=== PATIENT | male | born 1975 | race Caucasian/White ===

== ENCOUNTER 2016-08-26 20:47 | Emergency (ER) | payer SELFPAY ==
[2016-08-26] MEDS ORDERED: 0.9 % SODIUM CHLORIDE 1,000 ML IV ONE ×2 (21:12→22:53)
--- NOTE | 2016-08-26 21:45 | ED Physician Documentation ---
General Adult - HISTORIAN Historian: patient, spouse - HPI Stated Complaint: cough, weakness, fever Chief Complaint: General Adult Onset: days ago Timing: worse Severity: moderate Further Comments: yes (Pt is a 40 yo male with high fever 2 days ago and subsequent cough and sob. Pt is a smoker. Pt also c/o ongoing abd pain and back pain and wonders if he has pancreatitis. reports pt has had weight loss over the past few months. Pt is a heavy drinker and has had at least 6 beers this afternoon.) - ROS CONST: fever, sweating, weight loss EYES/ENT: nasal congestion CVS/RESP: shortness of breath, cough GI/: abdominal pain MS/SKIN/LYMPH: back pain - PAST HX Past History: other (ortho surgery, heavy alcohol use) Allergies/Adverse Reactions: Allergies Allergy/AdvReac Type Severity Reaction Status Date / Time No Known Allergies Allergy Verified 08/26/16 21:03 Home Medications: Ambulatory Orders Medication Instructions Recorded Azithromycin [Zithromax] 250 mg PO DAILY #5 tablet 08/27/16 Levofloxacin [Levaquin] 500 mg PO DAILY #7 tablet 08/27/16 - SOCIAL HX Smoking History: cigarettes Alcohol Use: heavy - FAMILY HX Family History: No - VITAL SIGNS Vital Signs: Vital Signs Temp Pulse Resp BP Pulse Ox 120/68 04/04/13 13:10 - REVIEWED ASSESSMENTS Nursing Assessment Reviewed: Yes Vitals Reviewed: Yes Progress - Progress Progress: NS 1 L IVF x 2 Duoneb HFN Levaquin 500 mg IV Azithromycin 500 mg po in ER Rx Azithromycin 250 mg. Take one daily for 5 days. Rx Levaquin 500 mg. Take one tablet once daily for 7 days. Albuterol (2.5 mg/3ml). One HFN treatment every 4 hrs as needed. - EKG/XRAY/CT XRAY: chest (Patchy bibasilar infiltrates worse on the right.), abdomen ( negative) ED Results Lab/Radiology - Orders Orders: ED Orders Category Date Time Status ABDOMEN 1 VIEW [RAD] Stat Exams 08/26/16 Ordered CHEST 2 VIEW [CHEST P.A.&LAT 2 VIEWS] [RAD] Stat Exams 08/26/16 Ordered AMYLASE Routine Lab 08/26/16 Ordered CBC/PLATELET/DIFF Routine Lab 08/26/16 Ordered CMP Routine Lab 08/26/16 Ordered D DIMER Stat Lab 08/26/16 Ordered ETHANOL MEDICAL USE ONLY Stat Lab 08/26/16 Ordered INFLUENZA A&B Stat Lab 08/26/16 Uncollected Rapid Strep [GRP A STREP SCREEN] Stat Lab 08/26/16 Ordered UA [URINALYSIS] Routine Lab 08/26/16 Ordered 0.9 % Sodium Chloride [Normal Saline] 1,000 ml Med 08/26/16 21:12 Active IV Q1H General Adult Physical Exam - PHYSICAL EXAM GENERAL APPEARANCE: moderate distress EENT: eye inspection normal, ENT inspection normal, pharynx normal NECK: normal inspection, supple RESPIRATORY: wheezes, rhonchi, other (cough) CVS: tachycardia ABDOMEN: soft, normal bowel sounds, tenderness (diffuse) BACK: normal inspection, no CVA tenderness SKIN: warm/dry, normal color EXTREMITIES: non-tender, normal range of motion, no evidence of injury NEURO: oriented X3, motor nml, sensation nml Discharge Clincal Impression: Pneumonia Qualifiers: Pneumonia type: due to unspecified organism Laterality: bilateral Lung location : lower lobe of lung Qualified Code(s): J18.9 - Pneumonia, unspecified organism Prescriptions: Azithromycin [Zithromax] 250 mg PO DAILY #5 tablet Levofloxacin [Levaquin] 500 mg PO DAILY #7 tablet Referrals: Primary Doctor,No [Primary Care Provider] - 2 Days Home Medications: Ambulatory Orders Azithromycin [Zithromax] 250 mg PO DAILY #5 tablet 08/27/16 Levofloxacin [Levaquin] 500 mg PO DAILY #7 tablet 08/27/16 Condition: Stable Disposition: 01 HOME, SELF-CARE Decision to Admit: NO Decision Time: 00:50
[2016-08-26] MEDS ORDERED: IPRATROPIUM/ALBUTEROL SULFATE 3 ML AMPUL.NEB NEB ONE (21:59)
[2016-08-26 22:08] LABS: eGFR (African) > 60; eGFR (Non-African) > 60
[2016-08-26 22:20] LABS: BASOPHILS % 0.3 (0.0-1.5); EOSINOPHILS % 0.9 % (0.0-6.8); LYMPHOCYTES # 2.6 # k/uL (0.6-4.0); MEAN CORPUSCULAR HEMOGLOBIN 32.3 pg (28.0-34.0); MONOCYTES # 0.5 # k/uL (0.0-0.9); MONOCYTES % 3.1 % (0.0-11.0); NEUTROPHILS # 12.9 # k/uL (1.4-7.7)
[2016-08-26] MEDS ORDERED: LEVOFLOXACIN 500MG/D5W 100ML 100 ML IV ONE (23:04)
[2016-08-26] MEDS ORDERED: AZITHROMYCIN 250 MG TABLET PO ONE (23:38)
[2016-08-27] MEDS ORDERED: ACETAMINOPHEN 325 MG TABLET PO ONE (00:20)
[2016-08-27] MEDS ORDERED: ACETAMINOPHEN 325 MG TABLET ONE (00:20)
[2016-08-27 01:31] VITALS: BP 105/54
--- NOTE | 2016-08-27 06:01 | Diagnostic Imaging Report ---
Report Submission Date: Aug 26, 2016 10:21:16 PM PUNCH OPERATOR Patient ~ Study Name: DORON KING ~ Date: Aug 26, 2016 10:03:45 PM PUNCH OPERATOR ~ Modality Type: CR Gender: M ~ Description: CHEST : 77 ~ Institution: [facility] Physician: DORON BAL ~ ~ ~ ~ Chest -two views CLINICAL HISTORY: ~ Cough. ~Shortness of breath. ~Recent weight loss. FINDINGS: ~ Examination of the chest in PA and lateral views with no prior film for comparison demonstrates bibasilar infiltrates worse on the right. ~There is minimal infiltrate in the right mid lung zone. ~Cardiac silhouette is within normal limits. IMPRESSION: ~ Patchy bibasilar infiltrates worse on the right. ~ Electronically signed on Aug 26, 2016 10:21:16 PM PUNCH OPERATOR by: Chalo MCALLISTER
--- NOTE | 2016-08-27 06:01 | Diagnostic Imaging Report ---
Report Submission Date: Aug 26, 2016 10:20:14 PM LOSS PREVENTION COORDINATOR Patient ~ Study Name: DORON KING ~ Date: Aug 26, 2016 10:02:28 PM LOSS PREVENTION COORDINATOR ~ Modality Type: CR Gender: M ~ Description: ABDOMEN : 77 ~ Institution: [facility] Physician: DORON BAL ~ ~ ~ ~ Abdomen-one view CLINICAL HISTORY: ~ Abdominal pain. ~Recent weight loss. FINDINGS: ~ Examination abdomen in single AP view demonstrates gas and stool in the colon. ~ There is no obstruction. ~Properitoneal fat lines are within normal limits. ~ There are no unusual intra- abdominal calcifications. ~The visualized bony structures are intact. IMPRESSION: ~ Negative abdomen. ~ Electronically signed on Aug 26, 2016 10:20:14 PM LOSS PREVENTION COORDINATOR by: Chalo MCALLISTER
[2016-08-27 08:05] LABS: APPEARANCE,URINE CLEAR (CLEAR); COLOR,URINE YELLOW (YELLOW); OCCULT BLOOD,URINE TRACE-LYSED (NEGATIVE); UROBILINOGEN URINE 0.2 Eu (0.2-1.0)
[2016-08-27] MEDS ORDERED: LEVOFLOXACIN 500MG/D5W 100ML 500 MG in PREMIX BAG 1 BAG IV SCH (09:00)
== END 2016-08-27 01:15 | disposition home or self-care (01) ==
LOC: ED 20:47
DX: J18.9 Pneumonia, unspecified organism (principal)
CPT/HCPCS: 71020; 74000; 80053; 80320; 81002; 82150; 85025; 85379; 87040; 87070; 87400; 87880; J1956; J7030; 96360; 99283; 99284; G0480; S1016

== ENCOUNTER 2017-02-05 18:53 | Emergency (ER) | payer SELFPAY ==
--- NOTE | 2017-02-05 19:05 | ED Physician Documentation ---
Sore Throat/Dental Pain - HISTORIAN Historian: patient - HPI Chief Complaint: Dental Pain Onset: days ago (yesterday) Context: Dental Caries Associated Symptoms: denies: fever, chills Further Comments: yes (started yesterday is gradually getting worse. Has tried ice pack, and heat without much improvement. Tylenol has not helped. Has dental appointment next week.) - ROS CONST: denies: no problems - PAST HX Past History: none Allergies/Adverse Reactions: Allergies Allergy/AdvReac Type Severity Reaction Status Date / Time No Known Allergies Allergy Verified 02/05/17 19:06 Home Medications: Ambulatory Orders Medication Instructions Recorded Clindamycin HCl [Cleocin] 300 mg PO QID #30 capsule 02/05/17 Tramadol HCl [Ultram] 50 mg PO Q6 PRN #20 tablet 02/05/17 - SOCIAL HX Smoking History: greater than 1 pack/day (1 ppd) Alcohol Use: occasionally Drug Use: none - FAMILY HX Family History: No - VITAL SIGNS Vital Signs: Vital Signs Temp Pulse Resp BP Pulse Ox 105/54 08/27/16 01:20 - REVIEWED ASSESSMENTS Nursing Assessment Reviewed: Yes Vitals Reviewed: Yes Dental Pain Physical Exam - EXAM General Appearance: alert, mild distress Eyes: eyes nml inspection Mouth/Throat: lips nml, pharynx nml, dental tenderness (left upper), widespread dental decay. No: pharyngeal erythema Respiratory: no resp. distress, breath sounds nml. No: wheezes, rales, rhonchi CVS: reg. rate & rhythm, heart sounds nml. No: murmur Skin: warm/dry, normal color Neuro/Psych: No: anxiety Discharge Clincal Impression: Dental caries Referrals: Primary Doctor,No [Primary Care Provider] - 2 Days Additional Instructions: Try Aleve take two tablets twice a day with food for the next 5 days. Supplement with tramadol one every 6 hours as needed for pain. Take clindamycin for antibiotic. Home Medications: Ambulatory Orders Clindamycin HCl [Cleocin] 300 mg PO QID #30 capsule 02/05/17 Tramadol HCl [Ultram] 50 mg PO Q6 PRN #20 tablet 02/05/17 Condition: Stable Disposition: 01 HOME, SELF-CARE Decision to Admit: NO Date of Decison to Admit: 02/05/17 Decision Time: 19:10
[2017-02-05 19:07] VITALS: BP 121/74
[2017-02-05] MEDS: KETOROLAC TROMETHAMINE 60 MG/2 ML VIAL IM ONE (19:18)
== END 2017-02-05 19:19 | disposition home or self-care (01) ==
LOC: ED 18:53
DX: K02.9 Dental caries, unspecified (principal)
CPT/HCPCS: 96372; 99283; J1885

== ENCOUNTER 2017-10-15 20:08 | Emergency (ER) | payer SELFPAY ==
[2017-10-15] MEDS ORDERED: KETOROLAC TROMETHAMINE 30 MG/1ML VIAL IM ONE (20:39)
[2017-10-15] MEDS ORDERED: KETOROLAC TROMETHAMINE 30 MG/1ML VIAL ONE (20:40)
--- NOTE | 2017-10-15 20:42 | ED Physician Documentation ---
General Adult - HISTORIAN Historian: patient - HPI Stated Complaint: Back Pain x 2 Weeks Chief Complaint: General Adult Onset: days ago (2 weeks) Timing: still present Severity: moderate Further Comments: yes (Pt is a 42 yo male with back pain. 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 Pt has been taking Tylenol/Ibuprofen, but nothing for muscle spasm he says. 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.) - ROS CONST: no problems EYES/ENT: none CVS/RESP: none GI/: none MS/SKIN/LYMPH: back pain - PAST HX Past History: none Surgeries/Procedures: other (ortho surgery) Allergies/Adverse Reactions: Allergies Allergy/AdvReac Type Severity Reaction Status Date / Time No Known Allergies Allergy Verified 10/15/17 20:21 Home Medications: Ambulatory Orders Medication Instructions Recorded NK [NK] 10/15/17 - SOCIAL HX Smoking History: cigarettes Alcohol Use: occasionally - FAMILY HX Family History: No - VITAL SIGNS Vital Signs: Vital Signs Temp Pulse Resp BP Pulse Ox 97 F L 75 18 103/70 96 10/15/17 20:10 10/15/17 20:10 10/15/17 20:10 10/15/17 20:10 10/15/17 20:10 - REVIEWED ASSESSMENTS Nursing Assessment Reviewed: Yes Vitals Reviewed: Yes Progress - Progress Progress: Toradol 30 mg IM Rx Flexeril 10m. Take one tablet by mouth every 8 hrs as needed for muscle spasm. Disp: #20 You may take ibuprofen 200 mg, up to 4 tablets every 8 hrs. Take with food. Do not take more than 4 gms of Tylenol (which would be 8 of the 500 mg tablets) in 24 hrs. ED Results Lab/Radiology - Orders Orders: ED Orders Category Date Time Status Ketorolac Tromethamine [Toradol] Med 10/15/17 20:40 Discontinued 30 mg .ROUTE .STK-MED ONE Ketorolac Tromethamine [Toradol] Med 10/15/17 20:39 Discontinued 30 mg IM NOW ONE General Adult Physical Exam - PHYSICAL EXAM GENERAL APPEARANCE: mild distress NECK: normal inspection, supple RESPIRATORY: no resp distress, chest non-tender, breath sounds normal CVS: reg rate & rhythm, heart sounds normal BACK: normal inspection, other (paraspinal lumbar muscle spasm) EXTREMITIES: non-tender, normal range of motion, no evidence of injury NEURO: oriented X3, motor nml, sensation nml, other (DTR's wnl) Discharge Clincal Impression: back pain/muscle spasm Referrals: Primary Doctor,No [Primary Care Provider] - Condition: Good Disposition: 01 HOME, SELF-CARE Decision to Admit: NO Decision Time: 21:05
[2017-10-15 21:05] VITALS: BP 114/63
== END 2017-10-15 21:02 | disposition home or self-care (01) ==
LOC: ED 20:08
DX: M54.2 Cervicalgia (principal); M62.838 Other muscle spasm
CPT/HCPCS: 96372; 99283; J1885

== ENCOUNTER 2017-11-20 13:23 | Emergency (ER) | payer SELFPAY ==
[2017-11-20 13:38] VITALS: BP 117/79
[2017-11-20] MEDS ORDERED: KETOROLAC TROMETHAMINE 60 MG/2 ML VIAL IM ONE (14:42)
[2017-11-20] MEDS ORDERED: ORPHENADRINE CITRATE 60 MG/2ML IM ONE (14:42)
--- NOTE | 2017-11-20 14:55 | ED Physician Documentation ---
General Adult - HISTORIAN Historian: patient - HPI Stated Complaint: Back Pain Chief Complaint: General Adult Further Comments: yes (42 year old male patient presents with complaints of back pain. Patient reports he fell on a wet deck 3 weeks ago, states he was seen in the ER, no xrays were done. Reports continued pain, radiating down right leg; denies any loss of bowel or bladder.) - ROS CONST: no problems EYES/ENT: none CVS/RESP: none GI/: none MS/SKIN/LYMPH: leg pain (right anterior thigh), back pain NEURO/PSYCH: denies: headache, fainting, dizziness, tingling, numbness, difficulty walking, difficulty with speech, anxiety, depression, other - PAST HX Past History: none Other History: none Allergies/Adverse Reactions: Allergies Allergy/AdvReac Type Severity Reaction Status Date / Time No Known Allergies Allergy Verified 11/20/17 13:38 Home Medications: Ambulatory Orders Medication Instructions Recorded Ketorolac Tromethamine [Toradol] 10 mg PO TID #15 tablet 11/20/17 - SOCIAL HX Smoking History: cigarettes - FAMILY HX Family History: No - VITAL SIGNS Vital Signs: Vital Signs Temp Pulse Resp BP Pulse Ox 97.2 F L 80 18 117/79 97 11/20/17 13:30 11/20/17 13:30 11/20/17 13:30 11/20/17 13:30 11/20/17 13:30 - REVIEWED ASSESSMENTS Nursing Assessment Reviewed: Yes Vitals Reviewed: Yes Progress - Progress Progress: Reviewed Er records. Last visit was 11/11/16 - no report of fall to nurse or provider. Patient reported drinking daily to deal with the pain. Reviewed today's injury report with patient. Again states he was at [facility] ER 3 weeks ago, states he reported the fall. Will progress with CT L-spine. Will not treat pain with narcotic as patient reported daily ETOH abuse at last visit. Reviewed CT results with patient; will treat with 5 days toradol. List of PCPs provided, instructed patient to establish PCP, explained he would need close follow up and possible MRI if pain continued. ED Results Lab/Radiology - Radiology Radiology Impressions: Examination: CT lumbar spine History: LOW BACK PAIN AFTER FALL ABOUT 3 WEEKS AGO (Hx) Comparison exams: None available Technique: CT lumbar spine axial imaging with sagittal and coronal reconstruction Findings: Sagittal reconstruction demonstrates normal height and alignment the lumbar vertebral bodies. No anterior compression deformity. Anterior, posterior , and lateral osteophytes. Endplate degenerative changes. Coronal reconstruction does not demonstrate locked or perched facets. Atherosclerotic disease involving the abdominal aorta. Axial imaging obtained from T12 through the sacrum Lamina and pedicles are intact. No ossific density within the central canal. Scattered facet degenerative changes. Multilevel central canal and neural foraminal narrowing. No prevertebral soft tissue abnormality. Impression: Multilevel degenerative changes. No evidence for vertebral body compression fracture. If patient is experiencing neurologic symptoms, consider obtaining MRI to further evaluate. Electronically signed on November 20, 2017 3:27:51 PM CDT by: Tolu Jaquez - Orders Orders: ED Orders Category Date Time Status CT L-SPINE W/O CONTRAST Stat Exams 11/20/17 Ordered Ketorolac Tromethamine [Toradol] Med 11/20/17 14:42 Discontinued 60 mg IM NOW ONE Orphenadrine Citrate [Norflex] Med 11/20/17 14:42 Discontinued 60 mg IM NOW ONE General Adult Physical Exam - PHYSICAL EXAM GENERAL APPEARANCE: [id number] N EENT: eye inspection normal, CAROL RESPIRATORY: no resp distress, chest non-tender, breath sounds normal CVS: reg rate & rhythm, heart sounds normal, equal pulses, no murmur, no gallop , PMI nml, no JVD, no friction rub, 24 ABDOMEN: soft, no organomegaly, normal bowel sounds, no abdominal bruit, no distension BACK: normal inspection, other (right positive leg raise) SKIN: normal color, warm/dry, NR, INT, PAL, DR EXTREMITIES: non-tender, normal range of motion, no evidence of injury, no edema , J, 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 Rest You may use Tylenol every 4hour as needed for pain. Limit your dose to less than 4 G per day. Do not take ibuprofen, aleve, naproxen or any other NSAID while you are on toradol. You may want to try massage, over the counter lidocaine patches, biofreeze, igor diaz or aspercream . Make an appointment for follow up with one of the physicians listed on the attached page. Condition: Stable Disposition: 01 HOME, SELF-CARE Decision to Admit: NO Decision Time: 15:36
--- NOTE | 2017-11-20 18:19 | Diagnostic Imaging Report ---
ALONDRA GALLEGOS ([employer]) - ER [facility] [address] [facility] [address] [place], [place]. [address] Report Submission Date: November 20, 2017 3:27:51 PM CDT Patient Study Name: DORON KING Date: November 20, 2017 2:49:43 PM CDT Modality Type: CT\SR Gender: M Description: CT L-SPINE W/O CONTRAS : 77 Institution: [facility] Physician: ALONDRA GALLEGOS (REJI) - ER Examination: CT lumbar spine History: LOW BACK PAIN AFTER FALL ABOUT 3 WEEKS AGO (Hx) Comparison exams: None available Technique: CT lumbar spine axial imaging with sagittal and coronal reconstruction Findings: Sagittal reconstruction demonstrates normal height and alignment the lumbar vertebral bodies. No anterior compression deformity. Anterior, posterior , and lateral osteophytes. Endplate degenerative changes. Coronal reconstruction does not demonstrate locked or perched facets. Atherosclerotic disease involving the abdominal aorta. Axial imaging obtained from T12 through the sacrum Lamina and pedicles are intact. No ossific density within the central canal. Scattered facet degenerative changes. Multilevel central canal and neural foraminal narrowing. No prevertebral soft tissue abnormality. Impression: Multilevel degenerative changes. No evidence for vertebral body compression fracture. If patient is experiencing neurologic symptoms, consider obtaining MRI to further evaluate. Electronically signed on November 20, 2017 3:27:51 PM CDT by: Tolu MCALLISTER
== END 2017-11-20 15:42 | disposition home or self-care (01) ==
LOC: ED 13:23
DX: M54.5 Low back pain (principal)
CPT/HCPCS: 72131; J1885; J2360; 96372; 99284

== ENCOUNTER 2018-03-03 17:46 | Emergency (ER) | payer SELFPAY ==
[2018-03-03] MEDS ORDERED: ORPHENADRINE CITRATE 60 MG/2ML IM ONE (18:12)
[2018-03-03] MEDS ORDERED: KETOROLAC TROMETHAMINE 60 MG/2 ML VIAL IM ONE (18:12)
[2018-03-03 18:25] LABS: BASOPHILS % 0.1 (0.0-1.5)
--- NOTE | 2018-03-03 18:27 | ED Physician Documentation ---
Low Back Pain - HISTORIAN Historian: patient, spouse - HPI Stated Complaint: back pain Chief Complaint: Low Back Pain/ Injury History: back pain Onset: other (4 months ago; worse past 24 hours) Duration: continues in ED Recent Injury: No (fell on deck 4 months ago) Further Comments: yes (42 year old male patient presents with complaint of low back pain radiating to right leg. Patient states he has had ongoing back pain for the past 4 months) - ROS CONST: no problems CVS/RESP: none EYES/ENT: none MS/SKIN/LYMPH: leg pain (right leg and groin) Neuro/Psych: none GI/: denies: abdominal pain, black stools - PAST HX Past History: back pain Allergies/Adverse Reactions: Allergies Allergy/AdvReac Type Severity Reaction Status Date / Time No Known Allergies Allergy Verified 03/03/18 18:04 Home Medications: Ambulatory Orders Medication Instructions Recorded NK 03/03/18 - SOCIAL HX Smoking History: cigarettes Alcohol Use: heavy (rarely) - FAMILY HX Family History: denies: none - VITAL SIGNS Vital Signs: Vital Signs Temp Pulse Resp BP Pulse Ox 97.8 F 66 18 123/73 97 03/03/18 17:53 03/03/18 17:53 03/03/18 17:53 03/03/18 17:53 03/03/18 17:53 - REVIEWED ASSESSMENTS Nursing Assessment Reviewed: Yes Vitals Reviewed: Yes Progress - Progress Progress: Reviewed old charts. Patient seen 10/15/17 and 11/20/17 for similar complaints. Patient was instructed to see PCP if pain did not improve after 11/20/17 visit. Patient has not seen PCP, no further imagining or evaluation. Patient concerned he has bone cancer, states his father had bone cancer at age 40. Reviewed lab results with patient; reviewed CT from November 2017. Questions answered. Encouraged patient to follow up with primary care. Coupon provided for toradol. ED Results Lab/Radiology - Lab Results Lab Results: Lab Results 03/03/18 03/03/18 18:15 18:15 WBC 9.10 K/ul K/ul (4.00-12.00) RBC 4.90 M/ul M/ul (3.90-5.20) Hgb 16.5 g/dL g/dL (12.0-18.0) Hct 50.0 % % (37.0-53.0) MCV 102.0 fl H fl (80.0-100.0) MCH 33.7 pg pg (28.0-34.0) MCHC 33.0 g/dL g/dL (30.0-36.0) RDW 12.8 % % (11.3-14.3) Plt Count 20 K/mm3 L K/mm3 (130-400) Neut % (Auto) 64.8 % % (39.0-79.0) Lymph % (Auto) 25.7 % % (16.0-50.0) [place] % (Auto) 4.9 % % (0.0-11.0) Eos % (Auto) 2.1 % % (0.0-6.8) Baso % (Auto) 0.1 (0.0-1.5) Neut # (Auto) 5.9 # k/uL # k/uL (1.4-7.7) Lymph # (Auto) 2.4 # k/uL # k/uL (0.6-4.0) [place] # (Auto) 0.4 # k/uL # k/uL (0.0-0.9) Eos # (Auto) 0.2 # k/uL # k/uL (0.0-0.6) Baso # (Auto) 0.0 # k/uL # k/uL (0.0-0.5) Reactive Lymphs % 2.2 % % (0.0-5.0) Reactive Lymphs # 0.2 # k/uL # k/uL (0.0-0.8) Sodium 137 mmol/L mmol/L (136-145) Potassium 4.0 mmol/L mmol/L (3.5-5.1) Chloride 105 mmol/L mmol/L (98-107) Carbon Dioxide 24 mmol/L mmol/L (22-30) BUN 11 mg/dL mg/dL (9-20) Creatinine 0.70 mg/dL mg/dL (0.66-1.25) Estimated Creat Clear 160 Est GFR ( Amer) > 60 (60 - ) Est GFR (Non-Af Amer) > 60 (60 - ) Glucose 128 mg/dL H mg/dL (74-106) Calcium 9.1 mg/dL mg/dL (8.4-10.2) Total Bilirubin 0.1 mg/dL L mg/dL (0.2-1.3) AST 27 U/L U/L (15-46) ALT 29 U/L U/L (13-69) Alkaline Phosphatase 76 U/L U/L (38-126) Total Protein 7.7 g/dL g/dL (6.3-8.2) Albumin 4.4 g/dL g/dL (3.5-5.0) - Radiology Radiology Impressions: Examination: CT lumbar spine November 20, 2017 History: LOW BACK PAIN AFTER FALL ABOUT 3 WEEKS AGO (Hx) Comparison exams: None available Technique: CT lumbar spine axial imaging with sagittal and coronal reconstruction Findings: Sagittal reconstruction demonstrates normal height and alignment the lumbar vertebral bodies. No anterior compression deformity. Anterior, posterior, and lateral osteophytes. Endplate degenerative changes. Coronal reconstruction does not demonstrate locked or perched facets. Atherosclerotic disease involving the abdominal aorta. Axial imaging obtained from T12 through the sacrum Lamina and pedicles are intact. No ossific density within the central canal. Scattered facet degenerative changes. Multilevel central canal and neural foraminal narrowing. No prevertebral soft tissue abnormality. Impression: Multilevel degenerative changes. No evidence for vertebral body compression fracture. If patient is experiencing neurologic symptoms, consider obtaining MRI to further evaluate. - Orders Orders: ED Orders Category Date Time Status CBC/PLATELET/DIFF Stat Lab 03/03/18 18:15 Completed CMP Stat Lab 03/03/18 18:15 Completed Ketorolac Tromethamine [Toradol] Med 03/03/18 18:12 Discontinued 60 mg IM NOW ONE Orphenadrine Citrate [Norflex] Med 03/03/18 18:12 Discontinued 60 mg IM NOW ONE Low Back Pain/Injury - Physical Exam General Appearance: moderate distress Resp/CVS: chest non-tender, breath sounds nml, heart sounds nml, no resp. distress, lungs clear, reg. rate & rhythm Abdomen: non-tender, no organomegaly, no pulsatile mass Back: non-tender, muscle spasm (right para-spinous muscle; 4 cm ecchymotic area on right flank, ). No: vertebral point-tendernes, CVA tenderness Neuro/Psych: oriented x3, motor nml, sensation nml, bilat. 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 You may use Tylenol every 4hour as needed for pain. Limit your dose to less than 4 G per day. Do not take ibuprofen, aleve, naproxen or any other NSAID while you are on toradol. You may want to try massage, over the counter lidocaine patches, biofreeze, igor diaz or aspercream . Make an appointment with your PCP, you need further MRI imaging on your back Condition: Stable Disposition: 01 HOME, SELF-CARE Decision to Admit: NO Decision Time: 19:09
[2018-03-03 18:33] LABS: EOSINOPHILS % 2.1 % (0.0-6.8); MEAN CORPUSCULAR HEMOGLOBIN 33.7 pg (28.0-34.0); MONOCYTES % 4.9 % (0.0-11.0); NEUTROPHILS # 5.9 # k/uL (1.4-7.7)
[2018-03-03 18:37] LABS: eGFR (African) > 60; eGFR (Non-African) > 60
[2018-03-03 19:30] VITALS: BP 123/72
== END 2018-03-03 19:20 | disposition home or self-care (01) ==
LOC: ED 17:46
DX: M54.41 Lumbago with sciatica, right side (principal)
CPT/HCPCS: 80053; 85025; J1885; J2360; 96372; 99284

== ENCOUNTER 2018-07-12 11:44 | Emergency (ER) | payer SELFPAY ==
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
[2018-07-12 13:34] VITALS: BP 108/76
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
== END 2018-07-12 13:15 | disposition home or self-care (01) ==
LOC: ED 11:44
DX: S20.211A Contusion of right front wall of thorax, initial encounter (principal); V86.55XA Driver of 3- or 4- wheeled all-terrain vehicle (ATV) injured in nontraffic accident, initial encounter; Y93.89 Activity, other specified; Y92.9 Unspecified place or not applicable
CPT/HCPCS: 71046; 99282; 99283